=== PATIENT | female | born 1975 | race Caucasian/White ===

== ENCOUNTER 2021-12-22 10:41 | Outpatient (CLI) | payer OTHER | END 2021-12-22 11:39 | disposition home or self-care (01) | LOC: PRENATAL 10:41 | PROVIDERS: ATTEND Obstetrics & Gynecology Maternal & Fetal Medicine | DX: O26.849 Uterine size-date discrepancy, unspecified trimester (principal); O35.0XX0 Maternal care for (suspected) central nervous system malformation in fetus, not applicable or unspecified; Z3A.32 32 weeks gestation of pregnancy ==